=== PATIENT | female | born 1960 | race Caucasian/White ===

== ENCOUNTER → 2019-01-20 09:15 | Outpatient (CLI) | payer BC, SELFPAY ==
[2019-01-20 10:27] LABS: Add Manual Diff / Slide Review NO; Basophils Absolute Auto 0 /uL (0-100); Basophils Percent Auto 1.1 % (0-2); Eosinophils Absolute Auto 100 /uL (0-450); Eosinophils Percent Auto 3.5 % (2-4); Hematocrit 38.2 % (36-46); Hemoglobin 12.7 g/dL (12.0-16.0); Lymphocytes Absolute Auto 1500 /uL (1100-4500); Lymphocytes Percent Auto 36.3 % (25-40); Mean Corpuscular HGB Conc 33.3 % (30-36); Mean Corpuscular Hemoglobin 31.7 PG (26-34); Mean Corpuscular Volume 95.4 fL (80-100); Monocytes Absolute Auto 300 /uL (0-900); Monocytes Percent Auto 7.1 % (3-14); Neutrophils Absolute Auto 2200 /uL (1500-7000); Platelet Count 220 X10^3/uL (150-400); Red Blood Cell Count 4.01 X10^6/uL (4.0-5.2); Red Cell Distribution Width 14.1 % (11.6-14.8); White Blood Cell Count 4.2 X10^3/uL (4.5-11.0)
[2019-01-20 10:43] LABS: Hemoglobin A1C% w Est Avg Glu 5.1 % (4.0-6.0)
[2019-01-20 11:04] LABS: BUN Creatinine Ratio 24.3 (6-22); Blood Urea Nitrogen 17 mg/dL (7-17); Calcium 9.7 mg/dL (8.4-10.2); Carbon Dioxide 26 mmol/L (22-32); Chloride 101 mmol/L (98-107); Cholesterol 202 mg/dL (140-199); Estimated Glomerular Filt Rate > 60.0 mL/min (>60); Glucose 84 mg/dL (70-100); HDL Cholesterol 66 mg/dL (40-60); HEMOLYSIS < 15 (0-50); LDL Cholesterol Calculated 124 mg/dL (<100); Potassium 3.9 mmol/L (3.4-5.1); Sodium 137 mmol/L (137-145); Triglycerides 60 mg/dL (35-150)
[2019-01-20 11:34] LABS: Thyroid Stimulating Hormone 0.72 uIU/mL (0.47-4.68)
[2019-01-20 14:39] LABS: Alanine Aminotransferase 29 IU/L (9-52); Albumin 4.6 g/dL (3.5-5.0); Albumin Globulin Ratio 1.6 (1.0-2.8); Alkaline Phosphatase 53 U/L (38-126); Aspartate Aminotransferase 43 IU/L (14-36); Bilirubin Total 0.3 mg/dL (0.2-1.3); Globulin 2.9 g/dL (1.7-4.1); Total Protein 7.5 g/dL (6.3-8.2)
== END ==
PROVIDERS: Visit Provider Acupuncturist
DX: Z00.00 Encounter for general adult medical examination without abnormal findings (principal)
CPT/HCPCS: 36415; 80053; 80061; 83036; 84443; 85025

== ENCOUNTER → 2019-02-27 14:32 | Outpatient (CLI) | payer BC, SELFPAY ==
--- NOTE | 2019-02-27 | DI.MG.S_ITS ---
BILATERAL DIGITAL SCREENING MAMMOGRAM 3D/2D WITH CAD WITH AUGMENTATION: 02/27/2019 CLINICAL: Baseline exam. Routine screening. Family history of breast cancer. No prior exams were available for comparison. The tissue of both breasts is heterogeneously dense. This may lower the sensitivity of mammography. Current study was also evaluated with a Computer Aided Detection (CAD) system. Bilateral breast implants are intact. No significant masses, calcifications, or other findings are seen in either breast. IMPRESSION: NEGATIVE There is no mammographic evidence of malignancy. A 1 year screening mammogram is recommended. This exam was interpreted at Station ID: [id number]. NOTE: For mammograms, a report in lay terms will be sent to the patient. Approximately 15% of breast malignancies will not be visualized mammographically. In the management of a palpable breast mass, a negative mammogram must not discourage biopsy of a clinically suspicious lesion. Electronically Signed By: Juan lockhart/praneeth:02/27/2019 18:12:51 copy to: ALEIDA FERNÁNDEZ NP, [facility] , ph: [phone], fax: [phone] letter sent: Normal Exam ACR BI-RADS Category 1: Negative 3341F
== END ==
PROVIDERS: Visit Provider Acupuncturist
DX: Z12.31 Encounter for screening mammogram for malignant neoplasm of breast (principal); Z80.3 Family history of malignant neoplasm of breast
CPT/HCPCS: 77063; 77067

== ENCOUNTER → 2019-04-18 06:27 | Outpatient (CLI) | payer BC, SELFPAY ==
--- NOTE | 2019-04-18 | DI.RAD.S_ITS ---
PROCEDURE: XR CHEST 2V INDICATIONS: Personal history of nicotine dependence TECHNIQUE: 2 views of the chest were acquired. COMPARISON: None. FINDINGS: Surgical changes and devices: None. Lungs and pleura: Lungs are clear. No pleural effusions or pneumothorax. Mediastinum: Mediastinal contours are normal. Heart size is normal. Bones and chest wall: No suspicious bony abnormalities. Soft tissues appear unremarkable. IMPRESSION: No acute cardiopulmonary pathology. Dictated by: Jose Hernandes M.D. on 04/18/2019 at 9:02 Approved by: Jose Hernandes M.D. on 04/18/2019 at 9:02
== END ==
PROVIDERS: Visit Provider Nurse Practitioner Women's Health
DX: Z77.090 Contact with and (suspected) exposure to asbestos (principal); Z87.891 Personal history of nicotine dependence
CPT/HCPCS: 71046

== ENCOUNTER → 2020-07-27 14:21 | Outpatient (CLI) | payer BC, SELFPAY ==
[2020-07-28 09:42] LABS: COVID19 Sendout Not Detected (Not Detect)
== END ==
PROVIDERS: Visit Provider Nurse Practitioner
DX: Z11.59 Encounter for screening for other viral diseases (principal)
CPT/HCPCS: 87635

== ENCOUNTER 2020-07-30 13:04 | Day surgery (SDC) | payer OTHER, SELFPAY ==
[2020-07-25 09:02] VITALS: BMI 24.3
[2020-07-30] VITALS (7 sets, daily range): BP systolic 114–135; BP diastolic 72–90; PULSE 66–94; RESP 13–18; TEMP 36.4–36.7; O2SAT 94–97; BMI 25.1
[2020-07-30] MEDS: LACTATED RINGERS 1,000 ML 100 ML IV ×2 (13:50→17:03)
--- NOTE | 2020-07-30 15:27 | PM.OP.1 ---
Operative Date/Time/Diagnoses Date of procedure: 07/30/20 Time of procedure: 17:02 Pre-op diagnosis: recurrent incisional ventral hernia Post-op diagnosis: other (two hernia defects within the prior repair and just superior to it) Procedure & Clinicians Procedure: Repair of recurrent incisional ventral hernia with onlay mesh Same procedure as scheduled: Yes Indications: Umbilical pain with irreducible bulge Surgeon: Sabiha Polo Click Yes if Unassisted: Yes Anesthesia Type: General Operative Notes Findings: 5mm hernia defect in the center of prior infra umbilical hernia repair; 5mm hernia defect in the center of the umbilicus with incarcerated preperitoneal fat. Specimen(s): none sent Prosthetic devices, grafts, tissues, transplants, or devices: BARD lightweight polypropelene mesh Estimated Blood Loss (mL): 1 Procedure in detail: The patient was brought to the operating room, placed supine on the operating table, and sequential compression devices were placed on both legs and turned on. Appropriate perioperative antibiotics were given. General anesthesia was induced by the anesthesiologist and the patient was intubated with an LMA. The abdomen was then prepped and draped in sterile fashion, and a surgical time-out was conducted. At this point local anesthetic was injected using 0.25% Marcaine with epi, at the site of the planned incision. A 3cm transverse curvilinear incision was then made in the skin on the superior border of the umbilicus. Dissection was then carried down through the dermis and subcutaneous tissue, until a hernia sac was encountered. I dissected circumferentially around the hernia sac, which was dissected off of the umbilical skin. The fat incarcerated within the sac was dissected out and divided. The hernia defect was at the center of the umbilicus. A second defect was identified 1cm inferior to this one in the midst of several old Ethibond sutures. Both defects were 5mm each. I closed both defects with 0 Ethibond suture. I then placed an onlay mesh using BARD ligthweight polypropelene mesh covering both defects with 2cm overlap all the way around. The mesh was secured down to the anterior fascia using 2-0 PDS suture. I then injected the fascia with the remaining 20mL of 0.25% Marcaine with epi for a total of 30mL, and 20mL of Exparel in small aliquots. I then covered the mesh with subcutaneous fat bringing it together with 3-0 Vicryl suture, tacked down the umbilical skin with 3-0 Vicryl and closed the skin with subcuticular Monocryl 4-0. The skin edges were then sealed with Dermabond. This concluded the procedure. Two cotton balls were placed in the umbilicus and covered with a Tegaderm. The patient was awakened from anesthesia and extubated. He was transferred onto his hospital [facility]. The patient was then transferred to the postanesthesia care unit in stable condition. He tolerated the procedure well. Needle sponge and instrument counts were correct x2 at the end of the case. Complications: none Post-operative Condition: stable Disposition: PACU
--- NOTE | 2020-07-30 15:27 | PM.PREOP ---
Pre-operative Note COVID-19 COVID-19 status: Negative Result date/Date tested (Pos, Neg/Pending): 07/27/20 Interval Note History & Physical reviewed/Exam performed by Physician: Yes Changes to H&P: No
[2020-07-30] MEDS: CEFAZOLIN 2 GM/100 ML FROZ.PIGGY IV (16:15)
--- NOTE | 2020-07-30 16:18 | SUR.OPER ---
Supine on padded OR bed, head on pillow, arms secured on padded arm boards at <90 degrees abduction, legs uncrossed, safety belt at thigh, tape over blanket over lower legs. Pillow under bilat knees
[2020-07-30] MEDS: BUPIVACAINE LIPOSOME 266 MG/20 ML VIAL INJ (16:39)
[2020-07-30] MEDS: BUPIVACAINE 0.25% W/ EPI 30 ML VIAL INJ (16:45)
[2020-07-30] MEDS: OXYCODONE/ACETAMINOPHEN 5/325 TABLET 1 TAB PO (17:21)
--- NOTE | 2020-07-30 17:56 | SUR.PHASEII ---
1750-Pt dcd via [facility] in stable condition and in good spirits. All dc instructions given and pt verblaizes understanding, will pick remover rxs at [facility]
== END 2020-07-30 17:50 | disposition home or self-care (01) ==
PROVIDERS: PCP Nurse Practitioner Women's Health; Referring Provider Nurse Practitioner Women's Health; Visit Provider Surgery
PROC: (CPT 49566; principal; 2020-07-30 14:15)
DX: K43.0 Incisional hernia with obstruction, without gangrene (principal); G47.33 Obstructive sleep apnea (adult) (pediatric)
CPT/HCPCS: 49566; 49568; C1781; C9290; J0330; J0690; J1100; J2405; J2704; J3010

== ENCOUNTER → 2021-11-17 08:17 | Outpatient (CLI) | payer BC, SELFPAY ==
[2021-11-17 08:57] LABS: COVID19 -Nasal RAPID POSITIVE (Negative)
[2021-11-18 13:56] LABS: Legionella pneumo Antigen Negative (Negative)
== END ==
PROVIDERS: PCP Nurse Practitioner Women's Health; Referring Provider Physician Assistant; Visit Provider Physician Assistant
DX: U07.1 COVID-19 (principal); R05.9 Cough, unspecified; R53.83 Other fatigue; Z20.822 Contact with and (suspected) exposure to COVID-19
CPT/HCPCS: 87449; 87635

== ENCOUNTER → 2022-12-22 10:56 | Outpatient (CLI) | payer OTHER, SELFPAY ==
--- NOTE | 2022-12-22 | DI.MRI.S_ITS ---
PROCEDURE: MR HIP RT WO CON INDICATIONS: RIGHT HIP PAIN/TENDONITIS TECHNIQUE: Noncontrast coronal T1 spin echo and STIR through the bony pelvis. Coronal and axial T2 fast spin echo with fat saturation, sagittal T1 spin echo, and oblique axial T2 fast spin echo with fat saturation through the hip. COMPARISON: None. FINDINGS: Image quality: Excellent. Bones and joints: [id number] bilateral hip joint osteoarthritic changes are seen with superior joint space narrowing, subchondral sclerosis and small marginal osteophyte formation. Prominence of right superior femoral head neck junction is seen with subcortical cystic area which can be seen associated with CAM type femoral acetabular impingement. No intraosseous lesions or fractures. No avascular necrosis of the femoral heads. The visualized lower lumbar spine appears normally aligned. Tendons and ligaments: Distal right gluteus medius and minimus tendinosis and low-grade partial-thickness tear at their insertion on greater trochanter is seen., without associated muscle atrophy. The nearby proximal iliotibial band also appears intact. The iliopsoas tendon appears intact, without adjacent bursal fluid collections or evidence for impingement syndrome. The origin of the hamstring tendon is intact at the ischial tuberosity, as well as the associated sacrotuberous ligament. The straight and reflected heads of the rectus femoris muscle origin appear intact, as well as the conjoint tendon. The ligamentum teres appears intact where visualized. Labrum and cartilage: Thinning of articulating cartilage of femoral head is seen. There is subtle signal abnormality and contour irregularity involving superior anterior right hip labrum at 12 to 1 o'clock position is seen suggestive of very subtle superior anterior labral tear. The alpha angle of the femur is within normal limits at less than 55 degrees. Soft tissues: Visualized muscles demonstrate normal bulk and internal signal. Quadratus femoris muscle demonstrates no internal edema to suggest ischiofemoral impingement. The proximal sciatic neurovascular bundle appears normal adjacent to the hamstring tendons. No free pelvic fluid. Bladder wall thickness is normal. Genitourinary structures and bowel loops appear normal where visualized. IMPRESSION: 1. Mild to moderate bilateral hip joint osteoarthritis. No hip fracture or dislocation. No evidence of avascular necrosis of femoral head. Prominence of superior right femoral head neck junction with subcortical cystic area which can be seen associated with CAM type femoral acetabular impingement. 2. Tendinosis and low-grade partial-thickness tear involving distal right gluteus medius and minimus at their insertion on greater trochanter. No other muscle or tendon signal abnormalities are seen. 3. Suggestion of subtle superior anterior right hip labral tear at 12 to 1 o'clock position. Dictated by: Jose Hernandes M.D. on 12/22/2022 at 15:50 Approved by: Jose Hernandes M.D. on 12/22/2022 at 15:53
== END ==
PROVIDERS: Referring Provider Orthopaedic Surgery; Visit Provider Orthopaedic Surgery
DX: S76.011A Strain of muscle, fascia and tendon of right hip, initial encounter (principal); M16.0 Bilateral primary osteoarthritis of hip; M25.551 Pain in right hip
CPT/HCPCS: 73721